=== PATIENT | female | born 1950 | race Two or more races ===

== ENCOUNTER 2017-01-14 10:41 | Outpatient (CLI) | payer OTHER | END 2017-01-14 11:02 | disposition home or self-care (01) | LOC: NUCLEAR 10:41 | DX: I10 Essential (primary) hypertension (principal); I51.9 Heart disease, unspecified; I67.89 Other cerebrovascular disease ==

== ENCOUNTER 2019-03-04 10:38 | Outpatient (CLI) | payer OTHER | END 2019-03-04 14:18 | disposition home or self-care (01) | LOC: NUCLEAR 10:38 | DX: I10 Essential (primary) hypertension (principal); R55 Syncope and collapse ==

== ENCOUNTER 2019-03-10 13:17 | Outpatient (CLI) | payer OTHER | END 2019-03-10 13:28 | disposition home or self-care (01) | LOC: NUCLEAR 13:17 | DX: R55 Syncope and collapse (principal) ==